=== PATIENT | male | born 1990 | race Two or more races ===

== ENCOUNTER 2024-07-13 09:12 | Emergency (ER) | payer SELFPAY ==
[~2024-07-13] VITALS: Ht 182.9 cm; Wt 93.3 kg
[2024-07-13 10:01] VITALS: BP 124/86; PULSE 65; RESP 16; TEMP 98; O2SAT 98
[2024-07-13] MEDS ORDERED: METH4PAK PO (10:28)
[2024-07-13] MEDS ORDERED: IBUP-1454 PO (10:28)
[2024-07-13] MEDS: methylPREDNISolone SOD SUCC 125 MG/2 ML VL IM ONE (10:39)
[2024-07-13] MEDS: KETOROLAC TROMETH 60MG/2ML VIAL IM ONE (10:40)
== END 2024-07-13 11:01 | disposition home or self-care (01) ==
LOC: ER 09:12
DX: M54.16 Radiculopathy, lumbar region (principal); Z88.6 Allergy status to analgesic agent
CPT/HCPCS: 96372; 99284; J1885; J2919

== ENCOUNTER 2024-07-22 15:10 | Emergency (ER) | payer SELFPAY ==
[~2024-07-22] VITALS: Ht 175.3 cm; Wt 92.7 kg
[~2024-07-22 15:10] MED LIST: IBUP-1454 PO; METH4PAK PO
[2024-07-22] MEDS ORDERED: IBU600T PO (15:35)
[2024-07-22] MEDS ORDERED: CYCL-838 PO (15:35)
[2024-07-22 15:40] VITALS: BP 146/86; PULSE 78; RESP 16; TEMP 98.2; O2SAT 96
== END 2024-07-22 15:44 | disposition home or self-care (01) ==
LOC: ER 15:10
DX: M54.41 Lumbago with sciatica, right side (principal); Z76.0 Encounter for issue of repeat prescription; Z79.1 Long term (current) use of non-steroidal anti-inflammatories (NSAID); Z79.899 Other long term (current) drug therapy

== ENCOUNTER 2024-08-02 10:13 | Emergency (ER) | payer SELFPAY ==
[~2024-08-02] VITALS: Ht 175.3 cm; Wt 97.9 kg
[~2024-08-02 10:13] MED LIST changes: +CYCL-838 PO; +IBU600T PO
[2024-08-02 11:40] VITALS: BP 148/98; PULSE 96; RESP 19; TEMP 97.2; O2SAT 98
[2024-08-02] MEDS ORDERED: TRAM50TA2 PO (11:44)
== END 2024-08-02 11:53 | disposition home or self-care (01) ==
LOC: ER 10:13
DX: G57.01 Lesion of sciatic nerve, right lower limb (principal); Z79.899 Other long term (current) drug therapy
CPT/HCPCS: 73610

== ENCOUNTER 2025-02-22 15:52 | Emergency (ER) | payer MEDICAID, OTHER ==
[~2025-02-22] VITALS: Ht 172.7 cm; Wt 92.7 kg
[~2025-02-22 15:52] MED LIST changes: +TRAM50TA2 PO
[2025-02-22 16:12] VITALS: BP 142/84; PULSE 87; RESP 17; TEMP 99; O2SAT 97
--- NOTE | 2025-02-22 17:08 | DVH ---
EXAM: XY L SHOULDER 2+ VIEW XRAY CLINICAL INDICATION: shoulder pain. r/o fracture TECHNIQUE: XY L SHOULDER 2+ VIEW XRAY Comparison: None FINDINGS/IMPRESSION: There is no evidence of acute fracture or dislocation. The visualized joint space is well maintained. The alignment is anatomical. There is no radiopaque foreign body.
== END 2025-02-22 17:18 | disposition left against medical advice (07) ==
LOC: ER 15:56
DX: M25.512 Pain in left shoulder (principal); Z53.21 Procedure and treatment not carried out due to patient leaving prior to being seen by health care provider
CPT/HCPCS: 73030